=== PATIENT | male | born 1985 | race Caucasian/White ===

== ENCOUNTER 2021-06-27 12:56 | Outpatient (CLI) | payer OTHER, SELFPAY ==
--- NOTE | 2021-06-27 13:07 | MR_ITS ---
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 COMPARISON: MRI 11/24/[address] 11/24/2019. TECHNIQUE: Multiplanar imaging performed through the brain with MultiHance 18 ml's IV. Patient has a known mass which has undergone surgical resection and embolization centered within the RIGHT jugular foramen. This mass is again identified centered within the jugular foramen at the skull base. Just lateral to the C1 vertebral body and extends over a length of 2.8 cm x 2.6 x 1.8 cm. Ther e is a typical salt and pepper signal intensity with moderate enhancement throughout the mass of a gl omus jugulare. There is widening of the RIGHT cerebellopontine angle with CSF expansion which is similar to prior st udies. There is very slight anterior displacement of the RIGHT carotid artery at the skull base. Ther e is a small cystic erosion in the RIGHT C1 ring. The mass extends into the deep RIGHT parotid space. Again noted is a coalescence of the RIGHT mastoid air cells and variable signal intensity from prior surgery. There is a RIGHT lateral occipital craniectomy site. No acute infarcts. No significant volume loss and white matter or prior infarct. Ventricles are trinity l size. No inferior displacement of cerebellar tonsils. Paranasal sinuses: Mild mucoperiosteal thicke dell throughout the frontal and ethmoid sinuses. Mastoid air cells: Prior resection of the RIGHT mastoid air cells and RIGHT occipital craniectomy. MR/MR head wo/w con [id number] IMPRESSION: 1. Partially enhancing mass centered within the RIGHT jugular foramen extends over length of 2.8 cm x 2.6 x 1.8 cm. 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 As compared to the study of 020 no significant or obvious progression of this mass. Mass is still identifie d but there is no additional erosion or extension which is appreciable. 2. RIGHT mastoidectomy and RIGHT occipital craniectomy.
[2021-06-27] MEDS: gadobenate dimeglumine 20 mL vial IV (13:50)
== END 2021-06-27 12:57 | disposition home or self-care (01) ==
PROVIDERS: Visit Provider Physician Assistant
DX: D49.6 Neoplasm of unspecified behavior of brain (principal)
CPT/HCPCS: 70553; A9577